=== PATIENT | male | born 1955 | race Hispanic/Latino ===

== ENCOUNTER 2022-06-06 09:18 | Observation (INO) | payer MEDICARE ==
[~2022-06-06] VITALS: Ht 175.3 cm; Wt 84.6 kg
[2022-06-06] MEDS ORDERED: AMIODARONE 900MG VIAL 540 MG in DEXTROSE 5%-WATER 300 ML IV SCH (10:30)
[2022-06-06] MEDS ORDERED: AMIODARONE 900MG VIAL 360 MG in DEXTROSE 5%-WATER 200 ML IV SCH (10:30)
[2022-06-06 12:06] LABS: BASOPHILS % (AUTO) 0.6 % (0.0-5.0); EOSINOPHILS % (AUTO) 0.9 % (0.0-8.0); HEMATOCRIT 49.6 % (42-54); LYMPHOCYTES % (AUTO) 27.5 % (21.0-51.0); MEAN CORPUSCULAR HEMOGLOBIN 29.9 pg (27.0-33.0); MEAN CORPUSCULAR HGB CONC 33.5 g/dL (32.0-36.0); MEAN CORPUSCULAR VOLUME 89.2 fL (79-99); MONOCYTES % (AUTO) 7.1 % (3.0-13.0); NEUTROPHILS % (AUTO) 63.7 % (40.0-77.0); PLATELET COUNT (AUTO) 175 K/uL (130-400); RED BLOOD CELL COUNT(AUTO) 5.56 MIL/uL (4.50-6.20); RED CELL DISTRIBUTION WIDTH 14.6 % (11.0-15.5); WHITE BLOOD COUNT (AUTO) 6.5 K/uL (4.8-10.8)
[2022-06-06 12:23] LABS: MAGNESIUM 1.8 mg/dL (1.80-2.40); POTASSIUM 4.3 mmol/L (3.5-5.1); THYROID STIMULATING HORMONE 4.64 uIU/mL (0.36-3.74); TOTAL PROTEIN, SERUM 8.5 g/dL (6.0-8.3)
[2022-06-06 17:04] VITALS: BP 133/61
[2022-06-06] MEDS ORDERED: FURO20TA4 PO (17:07)
[2022-06-06] MEDS ORDERED: DIGO125T71 PO (17:07)
[2022-06-06] MEDS ORDERED: METO-409 PO (17:07)
[2022-06-06] MEDS ORDERED: LOSA25TA41 PO (17:07)
[2022-06-06] MEDS ORDERED: RIVA20TA PO (17:07)
[2022-06-06] MEDS ORDERED: ATOR40TA69 PO (17:07)
[2022-06-06] MEDS ORDERED: ASPI-1197 PO (17:07)
[2022-06-06] MEDS ORDERED: LEVO25CA4 PO (17:07)
[2022-06-06 20:00] VITALS: BP 127/73
[2022-06-06] MEDS ORDERED: ATORVASTATIN 40 MG TABLET PO SCH (21:00)
[2022-06-06] MEDS ORDERED: MAGNESIUM 2GM PREMIX 50ML 50 ML IV PRN (21:00)
[2022-06-07 00:13] VITALS: BP 103/56
[2022-06-07 04:11] VITALS: BP 124/69
[2022-06-07] MEDS ORDERED: LEVOTHYROXINE 25 MCG TABLET PO SCH (06:30)
[2022-06-07 08:52] VITALS: BP 121/79
[2022-06-07] MEDS ORDERED: RIVAROXABAN 20 MG TABLET PO SCH (09:00)
[2022-06-07] MEDS ORDERED: FUROSEMIDE 20 MG TABLET PO SCH (09:00)
[2022-06-07] MEDS ORDERED: LOSARTAN 25 MG TABLET PO SCH (09:00)
[2022-06-07] MEDS ORDERED: METOPROLOL SUCCINATE 50 MG TAB.SR.24H PO SCH (09:00)
[2022-06-07] MEDS ORDERED: ASPIRIN 81MG CHEW TAB PO SCH (09:00)
[2022-06-07] MEDS ORDERED: LIDOCAINE PF 100MG/5ML (2%) SYRINGE 5ML ONE (09:54)
[2022-06-07] MEDS ORDERED: PROPOFOL 10 MG/ML 20ML VIAL IV ONE (09:54)
[2022-06-07] MEDS ORDERED: 0.9%NACL 1000ML 1,000 ML IV ONE (10:06)
[2022-06-07 12:57] VITALS: BP 84/54
[2022-06-07] MEDS ORDERED: DIGOXIN 125 MCG TABLET PO SCH (16:00)
[2022-06-07 16:16] VITALS: BP 99/59
[2022-06-07] MEDS ORDERED: AMIO200T68 PO (16:59)
[2022-06-08 00:06] VITALS: BP 126/52
== END 2022-06-07 17:45 | disposition home or self-care (01) ==
LOC: EDH 09:18 → EDHIP 09:19 → UNDOADMOB 09:56 → EDHIP 16:12 → 2AH 16:12
PROVIDERS: ADMIT Internal Medicine Cardiovascular Disease; ATTEND Internal Medicine Cardiovascular Disease
DX: I48.4 Atypical atrial flutter (principal); I10 Essential (primary) hypertension; Z79.899 Other long term (current) drug therapy
CPT/HCPCS: 96365; 96366; 96367; 84443; 83735; 80053; 85025; 36415; 71045; 93306; 93005; 92960; G0378 ×32; G0379; J3475; J7060 ×3; J0282 ×3; J7030; J2001; J2704

== ENCOUNTER 2022-09-04 11:45 | Emergency (ER) | payer MEDICARE ==
[~2022-09-04] VITALS: Ht 175.3 cm; Wt 79.4 kg
[~2022-09-04 11:45] MED LIST: AMIO200T68 PO; ASPI-1197 PO; ATOR40TA69 PO; FAMO20TA8 PO; FURO20TA4 PO; LEVO25CA4 PO; LOSA25TA41 PO; RIVA20TA PO; TRAM50TA4 PO
[2022-09-04 12:03] VITALS: BP 126/83
[2022-09-04 12:09] LABS: BASOPHILS % (AUTO) 0.5 % (0.0-5.0); EOSINOPHILS % (AUTO) 2.3 % (0.0-8.0); HEMATOCRIT 44.7 % (42-54); LYMPHOCYTES % (AUTO) 33.1 % (21.0-51.0); MEAN CORPUSCULAR HEMOGLOBIN 28.9 pg (27.0-33.0); MEAN CORPUSCULAR VOLUME 90.5 fL (79-99); MONOCYTES % (AUTO) 6.4 % (3.0-13.0); NEUTROPHILS % (AUTO) 57.4 % (40.0-77.0); PLATELET COUNT (AUTO) 207 K/uL (130-400); RED BLOOD CELL COUNT(AUTO) 4.94 MIL/uL (4.50-6.20); RED CELL DISTRIBUTION WIDTH 14.6 % (11.0-15.5); WHITE BLOOD COUNT (AUTO) 6.6 K/uL (4.8-10.8)
[2022-09-04 12:44] LABS: CREATININE 1.2 mg/dL (0.5-1.5); POTASSIUM 4.7 mmol/L (3.5-5.1)
[2022-09-04 12:49] LABS: ALBUMIN 3.7 g/dL (3.5-5.0); TOTAL PROTEIN, SERUM 8.1 g/dL (6.0-8.3)
[2022-09-04] MEDS ORDERED: AZIT500T2 PO (13:24)
[2022-09-04] MEDS ORDERED: BENZ-39 PO (13:24)
[2022-09-04] MEDS ORDERED: AZITHROMYCIN 250 MG TABLET PO ONE ×2 (13:30→14:43)
== END 2022-09-04 14:49 | disposition home or self-care (01) ==
LOC: EDH 11:45
DX: J20.9 Acute bronchitis, unspecified (principal); I50.9 Heart failure, unspecified; E86.0 Dehydration; I48.91 Unspecified atrial fibrillation; Z79.899 Other long term (current) drug therapy; Z79.82 Long term (current) use of aspirin; Z95.810 Presence of automatic (implantable) cardiac defibrillator
CPT/HCPCS: 36415; 71045; 80053; 84484; 85025; 93005

== ENCOUNTER → 2025-03-31 | Outpatient (CLI) | payer SELFPAY ==
[~2025-03-31] MED LIST changes: -AMIO200T68 PO; +AMIO200T73 PO; +AZIT500T2 PO; +BENZ-39 PO; -LEVO25CA4 PO; +LEVO25CA5 PO
--- NOTE | 2025-04-01 12:42 | HMCIMG ---
EXAM: CR Chest, 1 views. CLINICAL HISTORY: Cough. COMPARISON: None provided. FINDINGS: The lungs show no infiltrate or other acute findings. No pleural effusion or pneumothorax. Mild cardiomegaly is noted. Radio-opaque pacemaker is noted. No acute osseous abnormality. IMPRESSION: Mild cardiomegaly is noted. Radio-opaque pacemaker is noted. No infiltrate or effusion. /[place]
== END | disposition home or self-care (01) ==
LOC: RAH 15:46
PROVIDERS: ATTEND Internal Medicine Cardiovascular Disease
DX: I50.23 Acute on chronic systolic (congestive) heart failure (principal); I51.7 Cardiomegaly; Z95.0 Presence of cardiac pacemaker
CPT/HCPCS: 71046